=== PATIENT | female | born 1975 | race African-American/Black ===

== ENCOUNTER 2024-10-21 19:03 | Inpatient (IN) | payer MEDICAID, OTHER ==
[~2024-10-21] VITALS: Ht 160 cm; Wt 68.0 kg
[2024-10-21] MEDS: DiphenhydrAMINE HCL 50 MG/ML VIAL IM ONE ×2 (20:34→20:35)
[2024-10-21] MEDS: HALOPERIDOL LACTATE 5 MG/ML VIAL IM ONE ×2 (20:34→20:36)
[2024-10-21] MEDS: LORazepam 2 MG/ML VIAL IM ONE ×2 (20:35)
[2024-10-21 21:14] LABS: BASOPHILS % (AUTO) 0.6 % (0.0-2.0); EOSINOPHILS % (AUTO) 0.4 % (1.0-6.0); HEMATOCRIT 32.9 % (36-46); HEMOGLOBIN 10.9 g/dL (12.0-16.0); LYMPHOCYTES # (AUTO) 0.8 K/uL (1.0-4.8); LYMPHOCYTES % (AUTO) 11.4 % (22.0-44.0); MEAN CORPUSCULAR HEMOGLOBIN 29.3 pg (26.0-34.0); MEAN CORPUSCULAR HGB CONC 33.1 G/dL (31.0-37.0); MEAN CORPUSCULAR VOLUME 89 fL (80-100); MONOCYTES # (AUTO) 0.5 K/uL (0.1-1.0); MONOCYTES % (AUTO) 6.4 % (2.0-9.0); NEUTROPHILS # (AUTO) 5.9 K/uL (1.8-7.7); NEUTROPHILS % (AUTO) 81.2 % (40.0-70.0); PLATELET COUNT (AUTO) 169 K/uL (150-450); RED BLOOD CELL COUNT(AUTO) 3.71 MIL/uL (4.00-5.20); RED CELL DISTRIBUTION WIDTH 15.4 % (11.5-14.5); WHITE BLOOD COUNT (AUTO) 7.3 K/uL (4.5-11.0)
[2024-10-21 21:23] LABS: ANION GAP 11 mmol/L (8-16); CALCIUM, TOTAL 8.6 mg/dL (8.8-10.5); CARBON DIOXIDE 25 mmol/L (22-29); CHLORIDE 105 mmol/L (98-107); CREATININE 0.75 mg/dL (0.60-1.30); GLOMERULAR FILTR. RATE CALC > 60 mL/min (>60); GLUCOSE,RANDOM 86 mg/dL (70-110); POTASSIUM 3.7 mmol/L (3.5-5.1); SODIUM SERUM 141 mmol/L (136-145); UREA NITROGEN, BLOOD 15 mg/dL (7-18)
[2024-10-21 21:33] LABS: ALCOHOL, BLOOD (SERUM) < 3 mg/dL (0-10)
[2024-10-21 21:37] LABS: COVID AG,FIA SOURCE NASAL SWAB
[2024-10-21 22:01] LABS: SARS-COV2 (COVID) ANTIGEN,FIA Negative (Negative)
[2024-10-22 04:54] VITALS: BP 137/80; PULSE 82; RESP 18; TEMP 97.7; O2SAT 96
[2024-10-22 05:03] VITALS: BP 137/80; PULSE 82; RESP 18; TEMP 97.7; O2SAT 96
[2024-10-22] MEDS ORDERED: INFLUENZA VIRUS VACCINE TVS (6MO+) 2024-25/PF 45 MCG/0.5 ML SYRINGE IM. ONE (06:45)
[2024-10-22 08:14] VITALS: BP 124/76; PULSE 79; RESP 16; TEMP 98.2; O2SAT 98
[2024-10-22] MEDS ORDERED: ALBUTEROL SULFATE HFA 90 MCG/PUFF 8 GM INHALER IH PRN (09:45)
[2024-10-22] MEDS ORDERED: GuaiFENesin/D-METHORPHAN [SUGAR-FREE] 200-20MG/10 ML SYRUP UDCUP PO PRN (09:45)
[2024-10-22] MEDS ORDERED: LOPERAMIDE HCL 2 MG CAPSULE PO PRN (09:45)
[2024-10-22] MEDS ORDERED: CloNIDine HCL 0.1 MG TABLET PO PRN (09:45)
[2024-10-22] MEDS ORDERED: DOCUSATE SODIUM 100 MG CAPSULE PO PRN (09:45)
[2024-10-22] MEDS ORDERED: MAGNESIUM HYDROXIDE SUSPENSION 30 ML UDCUP PO PRN (09:45)
[2024-10-22] MEDS: LORazepam 2 MG TABLET PO PRN (13:59)
[2024-10-22] MEDS: RisperiDONE 1 MG TABLET PO SCH (17:49)
[2024-10-22 20:03] VITALS: BP 102/66; PULSE 84; RESP 17; TEMP 97.9; O2SAT 96
[2024-10-23 08:30] VITALS: BP 130/74; PULSE 82; RESP 16; TEMP 98; O2SAT 98
[2024-10-23] MEDS: PETROLATUM,WHITE 28 GM JELLY TP PRN (17:11)
[2024-10-23] MEDS: ONDANSETRON 4 MG TABLET PO PRN (17:22)
[2024-10-23 20:05] VITALS: BP 105/63; PULSE 73; RESP 18; TEMP 97.6; O2SAT 96
[2024-10-23] MEDS: DiphenhydrAMINE HCL 25 MG CAPSULE PO ONE (22:10)
[2024-10-24 08:00] VITALS: RESP 16
[2024-10-24] MEDS: IBUPROFEN 400 MG TABLET PO PRN (08:00)
[2024-10-24 08:25] VITALS: BP 126/75; PULSE 79; RESP 16; TEMP 98; O2SAT 96
[2024-10-24 09:00] VITALS: RESP 16
[2024-10-24 17:42] VITALS: RESP 16
[2024-10-24] MEDS: DiphenhydrAMINE HCL 25 MG CAPSULE PO PRN (17:42)
[2024-10-24 18:42] VITALS: RESP 16
[2024-10-24 20:13] VITALS: BP 110/78; PULSE 71; RESP 16; TEMP 98.1; O2SAT 96
[2024-10-25] MEDS: MAG HYDROX/ALUMINUM HYD/SIMETH ES 30 ML SUSPENSION UDCUP PO PRN (08:13)
[2024-10-25] MEDS: HYDROCORTISONE 1% 30 GM OINTMENT TP SCH (08:25)
[2024-10-25 08:35] VITALS: BP 113/82; PULSE 86; RESP 16; TEMP 97; O2SAT 98
[2024-10-25 20:17] VITALS: BP 114/71; PULSE 79; RESP 16; TEMP 98.5; O2SAT 98
[2024-10-25] MEDS: ZOLPIDEM TARTRATE 10 MG TABLET PO PRN (20:58)
[2024-10-26 08:07] VITALS: BP 126/73; PULSE 88; RESP 17; TEMP 97.5; O2SAT 99
[2024-10-26 08:08] VITALS: BP 126/73; PULSE 88; RESP 17; TEMP 97.5; O2SAT 99
[2024-10-26 09:19] LABS: CHOL/HDL RATIO 2.5 (3.9-5.7); THYROID STIMULATING HORMONE 1.27 uIU/mL (0.36-3.74)
[2024-10-26 20:06] VITALS: BP 135/73; PULSE 93; RESP 16; TEMP 98.4; O2SAT 98
[2024-10-27] VITALS (8 sets, daily range): BP systolic 123–135; BP diastolic 73–85; PULSE 87–95; RESP 16–18; TEMP 97.9–98.4; O2SAT 97–99
[2024-10-27] MEDS ORDERED: BACITRACIN 28 GM OINTMENT TP PRN (11:45)
[2024-10-27] MEDS: HALOPERIDOL 5 MG TABLET PO PRN (12:40)
[2024-10-27] MEDS: ACETAMINOPHEN 325 MG TABLET PO PRN (14:03)
[2024-10-28] VITALS (8 sets, daily range): BP systolic 103–115; BP diastolic 58–73; PULSE 80–92; RESP 16–18; TEMP 96.8–98.6; O2SAT 97–98
[2024-10-28] MEDS: CEPHALEXIN MONOHYDRATE 500 MG CAPSULE PO SCH (08:37)
[2024-10-28] MEDS: BACITRACIN 28 GM OINTMENT TP SCH (09:12)
[2024-10-28] MEDS: DOXYCYCLINE HYCLATE 100 MG TABLET PO SCH (10:15)
[2024-10-29 08:25] VITALS: BP 109/70; PULSE 92; RESP 16; TEMP 97.9; O2SAT 98
[2024-10-29 08:32] VITALS: RESP 17
[2024-10-29 08:53] LABS: APPEARANCE,URINE CLEAR (CLEAR); BILIRUBIN,URINE NEGATIVE (NEGATIVE); COLOR,URINE COLORLESS (YELLOW); GLUCOSE, URINE (UA) NEGATIVE (NEGATIVE); KETONES,URINE NEGATIVE (NEGATIVE); LEUKOCYTE ESTERASE ,URINE NEGATIVE (NEGATIVE); NITRATE,URINE NEGATIVE (NEGATIVE); OCCULT BLOOD,URINE NEGATIVE (NEGATIVE); PH,URINE 6.5 (5.0-8.0); PH,URINE DRUG SCREEN 6.5 (5.0-8.0); PROTEIN,URINE NEGATIVE (NEGATIVE); SPECIFIC GRAVITIY, URINE 1.008 (1.003-1.030); UROBILINOGEN,URINE <=1.0 mg/dL (<=1.0)
[2024-10-29 09:05] LABS: ALCOHOL, URINE DRUG SCREEN NEGATIVE (NEGATIVE); AMPHET/METH SCREEN,URINE NEGATIVE (NEGATIVE); BARBITURATE SCREEN, URINE NEGATIVE (NEGATIVE); BENZODIAZEPINES SCREEN,URINE NEGATIVE (NEGATIVE); CANNABINOID SCREEN,URINE NEGATIVE (NEGATIVE); COCAINE SCREEN,URINE NEGATIVE (NEGATIVE); METHADONE SCREEN, URINE NEGATIVE (NEGATIVE); OPIATE SCREEN,URINE NEGATIVE (NEGATIVE); PHENCYCLIDINE SCREEN,URINE NEGATIVE (NEGATIVE)
[2024-10-29 09:32] VITALS: RESP 16
[2024-10-29 10:13] VITALS: RESP 16
[2024-10-29] MEDS: IBUPROFEN 600 MG TABLET PO SCH (11:03)
[2024-10-29 11:13] VITALS: RESP 16
[2024-10-29 20:19] VITALS: BP 130/83; PULSE 101; RESP 19; TEMP 98.2; O2SAT 98
[2024-10-30 08:19] VITALS: BP 111/69; PULSE 91; RESP 16; TEMP 97.6; O2SAT 97
[2024-10-30 19:35] VITALS: RESP 16
[2024-10-30 20:20] VITALS: BP 115/70; PULSE 89; RESP 16; TEMP 97.5; O2SAT 97
[2024-10-30 20:35] VITALS: RESP 16
[2024-10-31 08:17] VITALS: BP 100/54; PULSE 79; RESP 17; TEMP 97.8; O2SAT 97
[2024-10-31 08:22] VITALS: BP 100/54; PULSE 79; RESP 17; TEMP 97.8; O2SAT 97
[2024-10-31 20:06] VITALS: RESP 18
[2024-11-01 01:02] VITALS: RESP 18
[2024-11-01 08:18] VITALS: BP 119/79; PULSE 72; RESP 18; TEMP 98; O2SAT 97
[2024-11-01 20:30] VITALS: BP 143/83; PULSE 97; RESP 18; TEMP 98.1
[2024-11-01] MEDS: DIVALPROEX SODIUM 500 MG DR TABLET PO SCH (20:44)
[2024-11-02 08:04] VITALS: BP 108/62; PULSE 90; RESP 18; TEMP 96.7; O2SAT 97
[2024-11-02] MEDS: AcetaZOLAMIDE 250 MG TABLET PO SCH (09:00)
[2024-11-02] MEDS: NICOTINE 14 MG/24 HOUR PATCH TD PRN (19:42)
[2024-11-02 20:06] VITALS: BP 117/71; PULSE 77; RESP 18; TEMP 96.5; O2SAT 97
[2024-11-03] MEDS ORDERED: DIVA-112 PO (08:27)
[2024-11-03] MEDS ORDERED: RISP-31 PO (08:27)
[2024-11-03 08:44] VITALS: BP 120/64; PULSE 100; RESP 16; TEMP 96.9; O2SAT 98
== END 2024-11-03 10:44 | disposition home or self-care (01) | DRG 751 ==
LOC: EMS 19:03 → B3A 10-22 00:09
PROVIDERS: ADMIT Psychiatry & Neurology Child & Adolescent Psychiatry; ATTEND Psychiatry & Neurology Child & Adolescent Psychiatry
PROC: GZ56ZZZ Individual Psychotherapy, Supportive (ICD-10-PCS; 2024-10-22)
PROC: GZHZZZZ Group Psychotherapy (ICD-10-PCS; principal; 2024-10-24)
PROC: GZ52ZZZ Individual Psychotherapy, Cognitive (ICD-10-PCS; 2024-10-24)
DX: F29 Unspecified psychosis not due to a substance or known physiological condition (principal); D64.9 Anemia, unspecified; G47.00 Insomnia, unspecified; I10 Essential (primary) hypertension; F41.9 Anxiety disorder, unspecified; L13.9 Bullous disorder, unspecified; Z20.822 Contact with and (suspected) exposure to COVID-19; Z79.899 Other long term (current) drug therapy
CPT/HCPCS: 80048; 80061; 80307; 81003; 84443; 84703; 85025; 99285; G0480; J1200; J1630; J2060; Q0162

== ENCOUNTER 2024-10-27 21:58 | Emergency (ER) | payer MEDICAID, OTHER ==
[~2024-10-27] VITALS: Ht 157.5 cm; Wt 72.7 kg
[2024-10-27 23:20] VITALS: TEMP 98.3
[2024-10-28 00:07] VITALS: BP 108/72; PULSE 95; RESP 18; O2SAT 98
[2024-10-28] MEDS: LORazepam 2 MG TABLET PO ONE (00:21)
[2024-10-28] MEDS: DiphenhydrAMINE HCL 25 MG CAPSULE PO ONE (00:21)
[2024-10-28] MEDS: CEPHALEXIN MONOHYDRATE 500 MG CAPSULE PO ONE (00:21)
[2024-10-28] MEDS: DOXYCYCLINE HYCLATE 100 MG TABLET PO ONE (00:21)
[2024-10-28] MEDS: BACITRACIN 0.9 GM PACKET OINTMENT TP ONE (00:21)
== END 2024-10-28 01:42 | disposition short-term general hospital (02) ==
LOC: EMS 21:58
DX: L12.0 Bullous pemphigoid (principal); F31.9 Bipolar disorder, unspecified
CPT/HCPCS: 16020; 97597; 99285; Z7502; Z7610